=== PATIENT | female | born 1980 | race Caucasian/White ===

== ENCOUNTER → 2020-01-30 16:10 | Outpatient (CLI) | payer BC, SELFPAY ==
--- NOTE | ~2020-01-30 | MM_ITS ---
EXAMINATION: MM screening rose BI w emmy HISTORY: Screening TECHNIQUE: Craniocaudal and mediolateral oblique 3-D tomosynthesis images were obtained and synthetic 2-D images were generated. CAD analysis was submitted and interpreted. COMPARISON: No prior mammogram is available for comparison at this institution. BREAST PARENCHYMAL COMPOSITION: There are scattered areas of fibroglandular density. FINDINGS: There is no evidence of suspicious mass, calcification, or architectural distortion to sugg est malignancy in either breast. There has been no suspicious interval change. IMPRESSION: 1. No mammographic evidence of malignancy. 2. Recommend routine screening mammography in one year. BI-RADS Category 1: Negative Reviewed, dictated and finalized at location A. DEALER
== END ==
PROVIDERS: Visit Provider Obstetrics & Gynecology
DX: Z12.31 Encounter for screening mammogram for malignant neoplasm of breast (principal)
CPT/HCPCS: 77063; 77067

== ENCOUNTER 2020-09-05 15:34 | Outpatient (CLI) | payer BC, SELFPAY ==
[2020-09-05 15:53] LABS: Hematocrit 45.3 % (37.0-47.0); Hemoglobin 14.7 g/dL (12.0-15.0); Mean Corpuscular HGB Conc 32.5 g/dl (32-36); Mean Corpuscular Hemoglobin 28.1 pg (26-34); Mean Corpuscular Volume 86.5 fl (80-100); Mean Platelet Volume 10.6 fl (7.4-10.4); Platelet Count Result 324 k/mm3 (150-375); Red Blood Count 5.24 M/mm3 (4.2-5.4); White Blood Count 8.2 K/mm3 (4.5-10.0)
[2020-09-05 16:34] LABS: Erythrocyte Sedimentation Rate 9 mm/hr (0-20)
[2020-09-05 19:19] LABS: Alanine Aminotransferase 38 U/L (4-35); Albumin Level 4.5 g/dL (3.5-5.1); Alkaline Phosphatase 61 U/L (38-126); Anion Gap 10 mmol/L (8-16); Aspartate Amino Transferase 37 U/L (14-36); Bilirubin,Total 0.4 mg/dL (0.2-1.3); Blood Urea Nitrogen 12 mg/dL (7-17); CRP < 0.5 mg/dL (<1.0); Calcium 11.1 mg/dL (8.4-10.2); Carbon Dioxide 25 mmol/L (22-30); Chloride 106 mmol/L (98-107); Estimated Glomerular Filt Rate > 60; Glucose 89 mg/dL (65-105); Potassium 4.1 mmol/L (3.4-5.0); Sodium 141 mmol/L (137-145)
[2020-09-10 22:19] LABS: Tissue Transglutaminase IgG Ab 4 U/mL (<6)
[2020-09-11 21:51] LABS: Tissue Transglutaminase IgA Ab 1 U/mL (<4)
== END 2020-09-05 15:35 | disposition home or self-care (01) ==
LOC: ANHLAB 15:36
PROVIDERS: PCP Family Medicine; Visit Provider Internal Medicine Gastroenterology
DX: K52.9 Noninfective gastroenteritis and colitis, unspecified (principal)
CPT/HCPCS: 36415; 80053; 83516; 84443; 85027; 85652; 86140

== ENCOUNTER 2020-10-25 00:43 | Day surgery (SDC) | payer BC, SELFPAY ==
[2020-10-14 14:45] VITALS: BMI 37.0
[2020-10-25 08:54] VITALS: BP 144/91; PULSE 65; RESP 18; TEMP 36.6; O2SAT 97; BMI 36.3
[2020-10-25] MEDS: LACTATED RINGERS 1,000 ML 150 ML IV CONT (09:01)
--- NOTE | 2020-10-25 09:22 | WPDANESEPPF ---
Anes - Initial Pre Proc Eval Procedure: Operation Date: 10/25/20 09:30 Proposed Procedures p Colonoscopy - Jacob Arambula MD Date/Time: 10/25/20 09:22 Surgeon: Jacob Arambula MD Pre Op Diagnosis: diarrhea Patient Data Age: 40 Gender: F Height: 1.68 m Weight: 102 kg Last Vital Signs Temp 97.9 F 10/25/20 08:54 Pulse 65 10/25/20 08:54 Resp 18 10/25/20 08:54 BP 144/91 H 10/25/20 08:54 Pulse Ox 97 10/25/20 08:54 Allergies Allergy/AdvReac Type Severity Reaction Status Date / Time amoxicillin Allergy Mild rash Verified 10/25/20 08:53 erythromycin base Allergy Unknown rash Verified 10/25/20 08:53 Penicillins Allergy Unknown rash Verified 10/25/20 08:53 Home Medications Medication Instructions Recorded Confirmed Type losartan 100 mg tablet 100 mg PO DAILY 09/05/20 10/14/20 History Patient hx anesthesia problems: none Family hx anesthesia problems: none PMFSH Past Medical History Medical History (Updated 09/05/20 @ 15:29 by Jacob Arambula MD) Allergies BMI 37.0-37.9, adult Chronic diarrhea Headache Hypertension Family History Family History (Updated 09/05/20 @ 15:23 by Candace Kevin MA) Mother Patient's mother is in good health Father Heart disease Mother Depression Thyroid disease Grandparent Liver cancer Lung cancer Crohn's disease Social History Social History (Updated 09/05/20 @ 15:24 by Candace Kevin MA) Smoking status: Never smoker Alcohol intake: former Alcohol use details: stopped drinking in April 2020 Substance use: never Substance use type: does not use Living arrangements: with family Gender identity (if verbalized by the patient): Female Sexual Orientation (if Verbalized by the Patient): Straight or Heterosexual Spiritual care concerns: No Agree to blood products: Yes Anes - Eval Final PreProcedure Day of Procedure 10/25/20 09:22 Patient weight: obese Heart: regular rate and rhythm Lungs: clear to auscultation Airway: Mallampati scale class II Neurological: alert and oriented Last oral intake: >/= 8 hours ASA classification: II Emergent: no Anesthetic plan: proceed Anesthesia type and monitoring: general GIVS and standard monitoring Informed Consent: The patient's anesthetic plan and its attendant risks and benefits were discussed with the patient/family/POA. Questions were solicited and answers provided to the satisfaction of the patient/family/POA.
--- NOTE | 2020-10-25 09:32 | PM.HPGS ---
History of Present Illness History of Present Illness Consent: Risks, benefits, and alternatives have been discussed and questions answered. Patient agrees to proceed with procedure. Chief complaint: diarrhea Narrative: Lynn Ibarra is a 40 year old female with alternating diarrhea and constipation, blood work reviewed (no celiac, normal tsh and normal inflammatory markers), never had scopes Review of Systems Constitutional: Constitutional: Denies headache(s) and Denies weakness Eyes: Eyes: Denies blurry vision ENT: Reports Normal hearing present, Denies headache(s) and Denies neck pain Cardiovascular: Cardiovascular: Denies chest pain and Denies dyspnea Respiratory: Respiratory: Denies dyspnea Gastrointestinal: Gastrointestinal: Reports no additional gastrointestinal complaints Genitourinary: Genitourinary: Denies dysuria Musculoskeletal: Musculoskeletal: Denies neck pain Integumentary/Breasts: Skin/Breast: Denies dry skin Neurologic: Reports Normal hearing present, Denies headache(s) and Denies weakness Psychiatric: Psychiatric: Denies anxiety Endocrine: Endocrine: Denies change in body appearance Hematologic/Lymphatic: Hematologic/Lymphatic: Denies easy bleeding Allergic/Immunologic: Allergic/Immunologic: Denies urticaria PMFSH Past Medical History Medical History (Updated 09/05/20 @ 15:29 by Jacob Arambula MD) Allergies BMI 37.0-37.9, adult Chronic diarrhea Headache Hypertension Family History Family History (Updated 09/05/20 @ 15:23 by Candace Kevin MA) Mother Patient's mother is in good health Father Heart disease Mother Depression Thyroid disease Grandparent Liver cancer Lung cancer Crohn's disease Social History Social History (Updated 09/05/20 @ 15:24 by Candace Kevin MA) Smoking status: Never smoker Alcohol intake: former Alcohol use details: stopped drinking in April 2020 Substance use: never Substance use type: does not use Living arrangements: with family Gender identity (if verbalized by the patient): Female Sexual Orientation (if Verbalized by the Patient): Straight or Heterosexual Spiritual care concerns: No Agree to blood products: Yes Meds Home Medications and Allergies Home Medications Medication Instructions Recorded Confirmed Type losartan 100 mg tablet 100 mg PO DAILY 09/05/20 10/14/20 History Allergies Allergy/AdvReac Type Severity Reaction Status Date / Time amoxicillin Allergy Mild rash Verified 10/25/20 08:53 erythromycin base Allergy Unknown rash Verified 10/25/20 08:53 Penicillins Allergy Unknown rash Verified 10/25/20 08:53 Vital Signs Vital Signs - 24 hr 10/25/20 08:54 Temperature 97.9 F Pulse Rate 65 Respiratory Rate 18 Blood Pressure 144/91 H Pulse Oximetry 97 Exam Const: General: comfortable and no acute distress HENMT: General nose exam: Normal nares present Eyes: General: appearance normal, both eyes and all related structures Neck: Neck: no JVD Resp: Auscultation: clear to auscultation bilaterally Cardio: Rate: regular rate Rhythm: regular rhythm GI: Inspection: non-distended GI Palp: Yes Soft to palpation Skin: General skin exam: normal color Neuro: General: gait normal Speech: normal speech Extrem: General: normal to inspection Psych: Mental Status: mental status grossly normal Assessment and Plan Assessment and plan (1) Chronic diarrhea: Code(s): K52.9 - Noninfective gastroenteritis and colitis, unspecified Status: Acute Assessment and Plan: colonoscopy with random colon bx
[2020-10-25 09:56] VITALS: BP 142/82; PULSE 77; RESP 16; O2SAT 100
[2020-10-25 10:06] VITALS: BP 129/78; PULSE 71; RESP 18; O2SAT 100
[2020-10-25 10:16] VITALS: BP 113/79; PULSE 62; RESP 20; O2SAT 99
== END 2020-10-25 10:31 | disposition home or self-care (01) ==
PROVIDERS: PCP Family Medicine; Visit Provider Internal Medicine Gastroenterology
PROC: 0DJD8ZZ Inspection of Lower Intestinal Tract, Via Natural or Artificial Opening Endoscopic (ICD-10-PCS; CPT 45378; principal; 2020-10-25 09:30)
DX: K52.9 Noninfective gastroenteritis and colitis, unspecified (principal); D12.3 Benign neoplasm of transverse colon; K63.5 Polyp of colon; K64.8 Other hemorrhoids; I10 Essential (primary) hypertension
CPT/HCPCS: 45385; 45380; 88305; J2704; J7120

== ENCOUNTER → 2021-08-27 11:19 | Outpatient (CLI) | payer BC, SELFPAY ==
--- NOTE | ~2021-08-27 | US_ITS ---
EXAMINATION: US thyroid DATE: 08/27/2021 12:00 INDICATION: Nontoxic goiter. TECHNIQUE: Multiple ultrasound images of the thyroid were obtained. COMPARISON: None. FINDINGS: The right thyroid lobe measures 5.5 x 1.6 x 1.6 cm. The left thyroid lobe measures 5.5 x 1.3 x 1.9 c m. The isthmus measures 0.4 cm. There is normal echotexture and echogenicity throughout the thyroid g land. No discrete nodules identified. Normal vascular flow is present. IMPRESSION: 1. Normal thyroid ultrasound findings. Reviewed, dictated and finalized at location K.
== END ==
PROVIDERS: PCP Family Medicine; Visit Provider Internal Medicine Endocrinology, Diabetes & Metabolism
DX: E04.9 Nontoxic goiter, unspecified (principal)
CPT/HCPCS: 76536

== ENCOUNTER → 2021-10-24 12:55 | Outpatient (CLI) | payer BC, SELFPAY ==
--- NOTE | ~2021-10-24 | MM_ITS ---
EXAMINATION: MM screening rose BI w emmy HISTORY: Screening mammogram TECHNIQUE: Craniocaudal and mediolateral oblique 3-D tomosynthesis images were obtained and synthetic 2-D images were generated. CAD analysis was submitted and interpreted. COMPARISON: 01/30/2020 BREAST PARENCHYMAL COMPOSITION: There are scattered areas of fibroglandular density. FINDINGS: There is no suspicious mass, calcification, or architectural distortion to suggest malignan cy in either breast. There has been no suspicious interval change. IMPRESSION: 1. No mammographic evidence of malignancy. 2. Recommend routine screening mammography in one year. BI-RADS Category 1: Negative Reviewed, dictated and finalized at location A.
== END ==
PROVIDERS: PCP Family Medicine; Visit Provider Family Medicine
DX: Z12.31 Encounter for screening mammogram for malignant neoplasm of breast (principal)
CPT/HCPCS: 77063; 77067

== ENCOUNTER → 2021-11-20 11:15 | Outpatient (CLI) | payer BC, SELFPAY ==
--- NOTE | ~2021-11-20 | DEXA_ITS ---
Bone Density Report Name: NINOSKA SALCIDO Age: 41 Sex: Female Ethnicity: White Date of : 1980 Indication: postmenopausal; Referring Provider: UmerAye Study: Bone densitometry was performed. Exam Date: November 20, 2021 Accession number: [id number] Bone Density: Region BMD T-score Z-score Classification AP Spine (L1-L4) 1.277 2.1 2.4 Normal Femoral Neck (Left) 0.881 0.3 0.6 Normal Total Hip (Left) 1.181 2.0 2.2 Normal Femoral Neck (Right) 0.950 0.9 1.3 Normal Total Hip (Right) 1.142 1.6 1.9 Normal Total Hip Mean 1.162 1.8 2.1 Normal World Health Organization criteria for BMD impression classify patients as: Normal (T-score at or above -1.0), Osteopenia (T-score between -1.0 and -2.5), or Osteoporosis (T-score at or below -2.5). 10-year Fracture Risk: FRAX not reported because: All T-scores for Spine Total, Hip Total, Femoral Neck at or above -1.0 Clinical Information Provided by Patient: Has used the following medications: Vitamin D Patient maximum height was 67.0 Menopause Age: 39 Drinks caffeinated beverages Onset of menses at age 13 Number of children 2 Impression: The patient has normal bone mass. Discussion: BONE DENSITY IS ABOVE THE MINIMUM DESIRABLE LEVEL AT ALL SKELETAL SITES TESTED. This patient?s bone mineral density is above the minimum desirable level (T-score -1.0 or better) at all sites measured. The patient should follow a healthful lifestyle (good nutrition with adequate calcium and vitamin D, and appropriate weight-bearing exercise). Follow-Up: Consider repeating this study in 5 years or sooner if there is some new clinical indication. Reported by: IVETH on 11/20/2021 11:43:00 AM. Reviewed, dictated and finalized at location [facility]
== END ==
PROVIDERS: PCP Family Medicine; Visit Provider Internal Medicine Endocrinology, Diabetes & Metabolism
DX: N95.9 Unspecified menopausal and perimenopausal disorder (principal)
CPT/HCPCS: 77080

== ENCOUNTER 2022-12-18 15:38 | Emergency (ER) | payer BC, SELFPAY ==
[2022-12-18] VITALS (9 sets, daily range): BP systolic 134–153; BP diastolic 90–106; PULSE 85–124; RESP 6–22; TEMP 37; O2SAT 94–100
--- NOTE | ~2022-12-18 | XR_ITS ---
EXAMINATION: XR chest 1V portable DATE: 12/18/2022 16:46 INDICATION: Shortness of breath with pressure across anterior chest TECHNIQUE: frontal view of the chest was obtained. COMPARISON: None FINDINGS: Calcified nodule at the lateral right lower lung zone consistent with old granulomatous disease. No o ther airspace opacities, pulmonary edema, pleural effusion or pneumothorax. The cardiomediastinal stu houette is normal. Cholecystectomy clips in right upper quadrant. IMPRESSION: 1. No acute cardiopulmonary disease. Reviewed, dictated and finalized at location A.
--- NOTE | 2022-12-18 15:39 | ECG_ITS ---
Measurements Intervals [place] [employer] Rate: 133 P: 42 VA: 157 QRS: 1 QRSD: 73 T: 31 QT: 303 QTc: 451 Interpretive Statements SINUS TACHYCARDIA LOW-VOLTAGE QRS IN PRECORDIAL LEADS NONSPECIFIC ST ABNORMALITY ABNORMAL ECG NO PREVIOUS ECG AVAILABLE FOR COMPARISON Electronically Signed On 12-19-2022 14:32:09 CDT by Sharan Bennett M.D.
[2022-12-18 15:55] LABS: Basophils Percent Auto 0.2 % (0.2-1.2); Eosinophils Percent Auto 0.1 % (0-4.4); Hematocrit 45.6 % (37.0-47.0); Hemoglobin 14.8 g/dL (12.0-15.0); Immature Granulocyte Absolute 0.03 K/mm3 (0.00-0.031); Immature Granulocyte Percent A 0.3 % (0-0.5); Lymphocytes Absolute Auto 2.13 K/mm3 (0.9-3.2); Lymphocytes Percent Auto 22.9 % (18.3-44.2); Mean Corpuscular HGB Conc 32.5 g/dl (32-36); Mean Corpuscular Hemoglobin 27.5 pg (26-34); Mean Corpuscular Volume 84.8 fl (80-100); Mean Platelet Volume 10.1 fl (7.4-10.4); Monocytes Absolute Auto 0.1 K/mm3 (0.1-0.6); Monocytes Percent Auto 1.5 % (2.6-8.5); Platelet Count Result 494 k/mm3 (150-375); Red Blood Count 5.38 M/mm3 (4.2-5.4); Red Cell Distribution Width 13.2 % (11.5-14.5); White Blood Count 9.3 K/mm3 (4.5-10.0)
[2022-12-18 16:06] LABS: Alanine Aminotransferase 25 U/L (6-35); Alkaline Phosphatase 67 U/L (38-126); Anion Gap 16 mmol/L (8-16); Aspartate Amino Transferase 27 U/L (14-36); Bilirubin,Total 0.6 mg/dL (0.2-1.3); Blood Urea Nitrogen 11 mg/dL (7-17); Calcium 10.2 mg/dL (8.4-10.2); Carbon Dioxide 21 mmol/L (22-30); Chloride 102 mmol/L (98-107); Estimated Glomerular Filt Rate > 60; Glucose 220 mg/dL (65-110); Potassium 4.7 mmol/L (3.4-5.0); Sodium 139 mmol/L (137-145)
[2022-12-18] MEDS: LORazepam INJ (*CRX) 2 MG/ML VIAL 0.5 MG IV PUSH (16:41)
--- NOTE | 2022-12-18 17:51 | ED.SOB ---
HPI - SOB/Dyspnea General Chief Complaint: Shortness of Breath/Dyspnea Stated Complaint: SOB Time Seen by Provider: 12/18/22 16:17 History of Present Illness HPI Narrative: Patient is a 42-year-old female who presents ER with anxiousness and shortness of breath. Reports she was sitting on the couch when all of a sudden she felt like her heart was racing. It was going 130 bpm. She then began breathing fast. She has developed tingling in her hands and mouth. She has had some cramping in her hands. No chest pressure/chest pain. Patient became even more nervous when she was thinking about her parathyroidectomy and tingling that she had related to calcium issues and thought this may be related. Patient has been under increased stress due to her working long hours in her having increased responsibilities at home with the children. These new situations have occurred over the last month. Patient also recently started on doxycycline and prednisone to treat bronchitis. Related Data Home Medications Medication Instructions Recorded Confirmed losartan 100 mg tablet 100 mg PO DAILY 09/05/20 10/14/20 Allergies Allergy/AdvReac Type Severity Reaction Status Date / Time amoxicillin Allergy Mild rash Verified 12/18/22 15:38 erythromycin base Allergy Unknown rash Verified 12/18/22 15:38 Penicillins Allergy Unknown rash Verified 12/18/22 15:38 Review of Systems Review of Systems: All systems reviewed & are unremarkable except as noted in HPI and below Constitutional: Constitutional: Denies chills and Denies fever(s) ENT: Denies nasal congestion and Denies sore throat Cardiovascular: Cardiovascular: Denies chest pain, Reports rapid heart rate and Denies radiating jaw, neck or arm pain Respiratory: Respiratory: Denies cough, Reports dyspnea and Denies wheezing Gastrointestinal: Gastrointestinal: Denies abdominal pain, Denies nausea and Denies vomiting Neurologic: Denies headache(s), Denies focal weakness and Reports numbness Psychiatric: Psychiatric: Reports anxiety and Denies depression [facility] Past Medical History Medical History (Updated 12/18/22 @ 20:05 by Júnior Rg MD) Allergies BMI 37.0-37.9, adult Chronic diarrhea Headache Hypertension Family History Family History (Updated 09/05/20 @ 15:23 by Candace Kevin MA) Mother Patient's mother is in good health Father Heart disease Mother Depression Thyroid disease Grandparent Liver cancer Lung cancer Crohn's disease Social History Social History (Updated 09/05/20 @ 15:24 by Candace Kevin MA) Smoking status: Never smoker Alcohol intake: former Alcohol use details: stopped drinking in April 2020 Substance use: never Substance use type: does not use Living arrangements: with family Occupation/Education: unemployed Gender identity (if verbalized by the patient): Female Sexual Orientation (if Verbalized by the Patient): Straight or Heterosexual Spiritual care concerns: No Agree to blood products: Yes Exam Narrative: GENERAL: Anxious-appearing, well-nourished, and in no acute distress. HEAD: Normocephalic, atraumatic. ENT: Mucous membranes moist. NECK: Supple. CHEST: Clear to auscultation. No respiratory distress. HEART: Tachycardic and regular. Normal peripheral pulses. ABDOMEN: Soft, nontender, nondistended. EXTREMITIES: Normal range of motion. No edema. SKIN: Warm, dry, no rash. NEURO: Alert and oriented x3. Course Course Emergency Course: Patient resting comfortably and feels improved after Ativan and IV fluid. Heart rate improved. Recommend follow-up with PCP. Also recommend discontinuing prednisone as it may have provoked some symptoms and is also increased her blood sugar. Vital Signs Vital signs: Vital Signs Temperature 98.6 F 12/18/22 16:01 Pulse Rate 124 H 12/18/22 16:01 Respiratory Rate 22 H 12/18/22 16:01 Blood Pressure 134/93 H 12/18/22 16:01 Pulse Oxime
[2022-12-18] MEDS: SODIUM CHLORIDE 0.9% IV 1,000 ML 999 ML IV CONT (18:30)
--- NOTE | 2022-12-18 19:23 | PC.NURSE ---
This RN assumed care of patient. THis RN took patient report from JANELL Hebert.
== END 2022-12-18 20:20 | disposition home or self-care (01) ==
PROVIDERS: Emergency Provider Emergency Medicine; PCP Family Medicine
DX: F41.0 Panic disorder [episodic paroxysmal anxiety] (principal); I10 Essential (primary) hypertension
CPT/HCPCS: 36415; 71045; 80053; 85025; 93005; 96361; 96374; 99284; J2060; J7030

== ENCOUNTER 2023-01-19 08:00 | Outpatient (CLI) | payer OTHER, SELFPAY ==
--- NOTE | 2023-01-19 | EST_ITS ---
Patient Info Name: Lynn Ibarra Age: 42 years : 1980 Gender: Female Ht: 67 in Wt: 230 lbs BSA: 2.26 m2 HR: 78 bpm BP: 127 / 92 mmHg Heart Rhythm: Sinus Rhythm Exam Date: 01/19/2023 8:19 AM Exam Location: Echo Lab Patient Status: Outpatient Admit Date: 01/19/2023 Staff Ordering Physician: Jass, Michael Lyons APRN Attending Provider: Jass, Michael Lyons APRN Exercise Technologist: Luz Perkins CT Nurse: Faye Mccrary APN Exam Type: CA stress test treadmill Study Info Indications I10 - Essential (primary) hypertension A treadmill exercise stress test was performed. Summary 1. Exercise capacity fair to good at 6-10 METS. 2. Occasional PVCs. 3. No abnormal ST/T wave changes diagnostic of ischemia with exercise. Protocol: Shawn Stress ECG Details Stage: REST Duration (min): 1 min : 1 sec Speed (mph): 0.0 Grade (%): 0 HR (bpm): 74 SBP (mmHg): 127 DBP (mmHg): 92 METS: --- Stage: REST Duration (min): 7 min : 48 sec Speed (mph): 0.0 Grade (%): 0 HR (bpm): 73 SBP (mmHg): 127 DBP (mmHg): 92 METS: --- Stage: STAGE 1 Duration (min): 1 min : 0 sec Speed (mph): 1.7 Grade (%): 10 HR (bpm): 123 SBP (mmHg): 127 DBP (mmHg): 92 METS: --- Stage: STAGE 1 Duration (min): 2 min : 0 sec Speed (mph): 1.7 Grade (%): 10 HR (bpm): 144 SBP (mmHg): 127 DBP (mmHg): 92 METS: --- Stage: STAGE 1 Duration (min): 3 min : 0 sec Speed (mph): 1.7 Grade (%): 10 HR (bpm): 138 SBP (mmHg): 152 DBP (mmHg): 98 METS: --- Stage: STAGE 2 Duration (min): 1 min : 0 sec Speed (mph): 2.5 Grade (%): 12 HR (bpm): 154 SBP (mmHg): 152 DBP (mmHg): 98 METS: --- Stage: STAGE 2 Duration (min): 2 min : 0 sec Speed (mph): 2.5 Grade (%): 12 HR (bpm): 167 SBP (mmHg): 162 DBP (mmHg): 87 METS: --- Stage: STAGE 2 Duration (min): 3 min : 0 sec Speed (mph): 2.5 Grade (%): 12 HR (bpm): 170 SBP (mmHg): 162 DBP (mmHg): 87 METS: --- Stage: STAGE 3 Duration (min): 0 min : 34 sec Speed (mph): 3.4 Grade (%): 14 HR (bpm): 177 SBP (mmHg): 162 DBP (mmHg): 87 METS: --- Stage: RECOVERY Duration (min): 0 min : 25 sec Speed (mph): 0.0 Grade (%): 0 HR (bpm): 170 SBP (mmHg): 184 DBP (mmHg): 96 METS: --- Stage: RECOVERY Duration (min): 1 min : 25 sec Speed (mph): 0.0 Grade (%): 0 HR (bpm): 121 SBP (mmHg): 184 DBP (mmHg): 96 METS: --- Stage: RECOVERY Duration (min): 2 min : 25 sec Speed (mph): 0.0 Grade (%): 0 HR (bpm): 104 SBP (mmHg): 184 DBP (mmHg): 96 METS: --- Stage: RECOVERY Duration (min): 3 min : 20 sec Speed (mph): 0.0 Grade (%): 0 HR (bpm): 104 SBP (mmHg): 165 DBP (mmHg): 96 METS: --- Rest HR: 73 bpm Peak HR: 177 bpm Rest Sys BP: 127 mmHg Peak Sys BP: 184 mmHg Max Pred HR: 177 bpm % Max Pred HR: 100 % Target HR:
== END 2023-01-19 08:01 | disposition home or self-care (01) ==
PROVIDERS: PCP Family Medicine; Visit Provider Nurse Practitioner Family
DX: I10 Essential (primary) hypertension (principal)
CPT/HCPCS: 93017

== ENCOUNTER 2024-10-06 13:58 | Outpatient (CLI) | payer OTHER, SELFPAY ==
--- NOTE | ~2024-10-06 | MM_ITS ---
EXAMINATION: MM screening rose BI w emmy HISTORY: Screening TECHNIQUE: Craniocaudal and mediolateral oblique 3-D tomosynthesis images were obtained and synthetic 2-D images were generated. CAD analysis was submitted and interpreted. COMPARISON: Comparison to multiple prior studies sequentially, with oldest reviewed study dated 09/2019. BREAST PARENCHYMAL COMPOSITION: Not dense: There are scattered areas of fibroglandular density. FINDINGS: There is no evidence of suspicious mass, calcification, or architectural distortion to sugg est malignancy in either breast. There has been no suspicious interval change. IMPRESSION: 1. No mammographic evidence of malignancy. 2. Recommend routine screening mammography in one year. BI-RADS Category 1: Negative Reviewed, dictated and finalized at location A.
== END 2024-10-06 13:59 | disposition home or self-care (01) ==
LOC: MICIMG 13:59
PROVIDERS: PCP Nurse Practitioner Family; Visit Provider Nurse Practitioner Family
DX: Z12.31 Encounter for screening mammogram for malignant neoplasm of breast (principal)
CPT/HCPCS: 77063; 77067